=== PATIENT | male | born 1935 | race Caucasian/White ===

== ENCOUNTER 2018-03-01 14:20 | Day surgery (SDC) | payer MEDICARE, OTHER ==
[~2018-03-01 14:20] MED LIST: Lactated Ringers 1,000 ML IV SCH; Sodium Chloride 0.9% 10 ML Syringe FLUSH PRN
[2018-03-01] MEDS ORDERED: Propofol 200 MG/20 ML SDV ONE ×3 (14:22→14:59)
--- NOTE | 2018-03-01 14:58 | PCM.PN ---
- General Info Date of Service: 03/01/18 - Review of Systems Systems Review Comment:: 82-year-old male referred by Sophia Moses for EGD and colonoscopy. He notes dark stools recently and also was noted to have a decreasing hemoglobin. The patient does take Elaquis. His last dose was 2 days ago. I have discussed the proposed colonoscopy with the patient. Risks such as but not limited to bleeding and GI injury reviewed. He appears to understand and agrees to proceed. His recent history and physical is reviewed and there is no significant changes noted. - Patient Data Weight - Most Recent: 93.894 kg Med Orders - Current: Current Medications Lactated Ringer's (Ringers, Lactated) 1,000 mls @ 125 mls/hr IV ASDIRECTED MARIO Last Admin: 03/01/18 14:55 Dose: 125 mls/hr Sodium Chloride (Saline Flush) 10 ml FLUSH ASDIRECTED PRN PRN Reason: Keep Vein Open Discontinued Medications Propofol (Diprivan 20 Ml) Confirm Administered Dose 400 mg .ROUTE .STK-MED ONE Stop: 03/01/18 14:23 - Problem List Review Problem List Initiated/Reviewed/Updated: Yes - My Orders Last 24 Hours: My Active Orders 03/01/18 13:15 Patient Status [ADT] Routine Peripheral IV Care [RC] . DIRECTED Verify Patient Consent Obtain [RC] ASDIRECTED Lactated Ringers [Ringers, Lactated] 1,000 ml IV ASDIRECTED Sodium Chloride 0.9% [Saline Flush] 10 ml FLUSH ASDIRECTED PRN Peripheral IV Insertion Adult [OM.PC] Routine - Assessment Assessment:: Anemia with GI bleed - Plan Plan:: EGD and colonoscopy
--- NOTE | 2018-03-01 15:41 | PCM.OPNOTE ---
- General Post-Op/Procedure Note Date of Surgery/Procedure: 03/01/18 Operative Procedure(s): EGD with Biopsy. Colonoscopy with Polypectomy Findings: Large Gastric Mass (suspicious for malignancy) Extensive Left Colon Diverticulosis Transverse Colon Polyp Pre Op Diagnosis: Anemia with Dark Stools Post-Op Diagnosis: Gastric Mass. Left colon Diverticulosis. Colon Polyp Anesthesia Technique: MAC Primary Surgeon: Raudel Stephenson Pathology: Biopsy of Gastric Mass Transverse Colon Polyp Output, Urine Amount: 0 EBL in mLs: 5 Complications: None Condition: Good Free Text/Narrative:: Intake & Output 03/01/18 03/01/18 03/01/18 06:59 14:59 22:59 Intake Total 900 Balance 900
--- NOTE | 2018-03-02 08:40 | OR ---
Date of Procedure: 03/01/2018 PREOPERATIVE DIAGNOSES: Anemia and gastrointestinal bleeding. POSTOPERATIVE DIAGNOSES: Gastric mass, left colon diverticulosis, transverse colon polyp. OPERATION PERFORMED: Esophagogastroduodenoscopy with biopsy and colonoscopy with polypectomy. INDICATIONS FOR SURGERY: This 82-year-old male has been noted to have anemia and also has been having some dark stools. He is referred for upper and lower endoscopy. FINDINGS: In the midportion of the patient's stomach along the lesser curvature posteriorly, the patient has a large polypoid mass, estimated at approximately 5 to 7 cm. It is irregular in shape and grossly worrisome for a gastric malignancy. It has a relatively thick stalk attachment to the gastric wall. The remainder of the gastric wall appeared normal as does the esophagus and duodenum. In the patient's colon, he has extensive left colon diverticulosis, but does not appear to be acutely inflamed. He had a single polyp noted in the distal transverse colon. This was 7 mm in size and sessile in configuration. DESCRIPTION OF PROCEDURE: The patient was taken to the operating room. He was given intravenous sedation, and with him in the left lateral decubitus position, the esophagus was intubated with the Olympus gastroscope. This was carefully advanced down through the esophagus and into the stomach with the above gastric mass as noted. The scope was further advanced down into the duodenum, where examination to the 3rd portion was performed. After carefully examining the duodenum, the scope was withdrawn back into the stomach where full examination including retroflexed examination of the fundus was performed. The gastric mass was identified, multiple bites of the mass were taken in an effort to establish diagnosis. Without visible evidence of excessive bleeding, the scope was then further withdrawn. The GE junction and esophagus were re-examined as the scope was removed. Attention was turned to colonoscopy. Digital rectal exam showed no rectal masses. The Olympus colonoscope was inserted into the rectum. Retroflexed examination of the rectal canal was performed. The scope was then carefully advanced up through the left side of the colon, and in the distal transverse colon, the above-described polyp was identified. It was removed with a cautery snare and retrieved into a polyp trap. The scope was then carefully advanced through the entire length of the colon until the cecum was reached. Cecal acquisition was confirmed by noting the normal internal cecal anatomy including the appendiceal orifice and ileocecal valve and the light was also noted to transilluminate the abdominal wall in the right lower quadrant. After examining the cecum, the scope was slowly withdrawn sequentially re-examining the colonic segments until the entire colon and rectum had been fully examined. The scope was removed and the patient was taken from the operating room in satisfactory condition. ESTIMATED BLOOD LOSS: 5 mL. COMPLICATIONS: None. PROGNOSIS: Good. AMRITA Stephenson MD /[id number]
== END 2018-03-01 16:39 | disposition home or self-care (01) ==
LOC: LL.SDS 14:20
PROVIDERS: ATTEND Surgery
DX: C16.5 Malignant neoplasm of lesser curvature of stomach, unspecified (principal); D12.3 Benign neoplasm of transverse colon; K57.30 Diverticulosis of large intestine without perforation or abscess without bleeding; I12.9 Hypertensive chronic kidney disease with stage 1 through stage 4 chronic kidney disease, or unspecified chronic kidney disease; N18.3 Chronic kidney disease, stage 3 (moderate); G47.33 Obstructive sleep apnea (adult) (pediatric); E66.9 Obesity, unspecified; Z68.29 Body mass index [BMI] 29.0-29.9, adult; E78.2 Mixed hyperlipidemia; Z99.89 Dependence on other enabling machines and devices; D64.9 Anemia, unspecified; Z79.82 Long term (current) use of aspirin; Z79.899 Other long term (current) drug therapy; Z88.8 Allergy status to other drugs, medicaments and biological substances; H90.3 Sensorineural hearing loss, bilateral; I48.91 Unspecified atrial fibrillation; Z79.01 Long term (current) use of anticoagulants
CPT/HCPCS: 00813; J2704; J7120

== ENCOUNTER 2024-08-06 10:29 | Inpatient (IN) | payer MEDICARE, OTHER ==
[2024-08-06 11:59] LABS: BASOPHILS ABSOLUTE AUTO 0.01 K/uL (0.00-0.20); BASOPHILS PERCENT AUTO 0.1 % (0.0-2.0); EOSINOPHILS ABSOLUTE AUTO 0.01 K/uL (0.00-0.50); EOSINOPHILS PERCENT AUTO 0.1 % (0.0-5.0); HEMATOCRIT 39.1 % (39.0-49.0); HEMOGLOBIN 12.7 g/dL (13.1-16.8); LYMPHOCYTES ABSOLUTE AUTO 0.59 K/uL (0.50-3.50); LYMPHOCYTES PERCENT AUTO 6.7 % (10.0-50.0); MEAN CORPUSCULAR HEMOGLOBIN 34.4 pg (28.2-33.3); MEAN CORPUSCULAR HGB CONC 32.5 g/dL (31.7-36.0); MONOCYTES ABSOLUTE AUTO 0.88 K/uL (0.00-1.00); MONOCYTES PERCENT AUTO 10.1 % (2.0-14.0); NEUTROPHILS ABSOLUTE AUTO 7.26 K/uL (1.40-7.00); PLATELET COUNT,PLT 179 K/uL (150-350); RED BLOOD CELL COUNT 3.69 M/uL (4.33-5.41); RED CELL DISTRIBUTION WIDTH 13.8 % (11.2-14.1); WHITE BLOOD CELL COUNT,WBC 8.8 K/uL (4.0-10.2)
[2024-08-06] MEDS ORDERED: Sodium Chloride 0.9% 10 ML Syringe FLUSH PRN (12:13)
[2024-08-06 12:19] LABS: INR 1.4 (0.9-1.1); PROTHROMBIN TIME 14.2 SEC (9.0-11.1)
[2024-08-06 12:32] LABS: ALANINE AMINOTRANSFERASE,ALT 28 U/L (12-78); ALBUMIN 3.4 g/dL (3.4-5.0); ALKALINE PHOSPHATASE 74 IU/L (46-116); ANION GAP 12.9 meq/L (7-15); ASPARTATE AMNIOTRANSFERASE,AST 33 U/L (15-37); BILIRUBIN TOTAL 1.4 mg/dL (0.2-1.0); BLOOD UREA NITROGEN,BUN 47 mg/dL (7-18); CALCIUM 10.5 mg/dL (8.5-10.1); CARBON DIOXIDE,CO2 27.4 mmol/L (21.0-32.0); CHLORIDE,CL 101 mmol/L (98-107); CREATININE 2.87 mg/dL (0.51-1.17); ESTIMATED GFR 20 mL/min (>=60); GLUCOSE RANDOM 126 mg/dL (70-99); POTASSIUM,K 5.3 mmol/L (3.5-5.1); PRO B-TYPE NATRIUR PEPT,BNPPRO 2165 pg/mL (0-125); PROTEIN TOTAL,TP 7.3 g/dL (6.4-8.2); SODIUM,NA 136 mmol/L (136-145)
[2024-08-06] MEDS: Furosemide 20 MG Tab PO ONE (12:38)
[2024-08-06] MEDS: Metoprolol Succinate 25 MG Tab.ER PO ONE (12:39)
[2024-08-06] MEDS ORDERED: Naloxone 0.4 MG/ML SDV IVPUSH PRN (12:47)
[2024-08-06] MEDS: fentaNYL 50 MCG/ML SDV IVPUSH ONE (12:56)
[2024-08-06] MEDS: Sodium Chloride 0.9% 10 ML Syringe FLUSH PRN (13:08)
[2024-08-06] MEDS ORDERED: Ondansetron 4 MG Tab.DIS PO PRN (19:42)
[2024-08-06] MEDS ORDERED: LORazepam 2 MG/ML SDV IV PRN (19:42)
[2024-08-06] MEDS: Acetaminophen 325 MG Tab PO PRN (21:13)
[2024-08-06] MEDS: Melatonin 3 MG Tab PO PRN (21:13)
[2024-08-06] MEDS: Warfarin 5 MG Tab PO SCH (21:37)
[2024-08-06] MEDS: Warfarin 5 MG Tab ONE (22:27)
[2024-08-07] MEDS: Morphine 2 MG/ML SYRINGE IVPUSH PRN (04:04)
[2024-08-07 07:33] LABS: BASOPHILS ABSOLUTE AUTO 0.02 K/uL (0.00-0.20); BASOPHILS PERCENT AUTO 0.2 % (0.0-2.0); EOSINOPHILS ABSOLUTE AUTO 0.01 K/uL (0.00-0.50); EOSINOPHILS PERCENT AUTO 0.1 % (0.0-5.0); HEMATOCRIT 36.6 % (39.0-49.0); HEMOGLOBIN 11.8 g/dL (13.1-16.8); LYMPHOCYTES ABSOLUTE AUTO 0.65 K/uL (0.50-3.50); LYMPHOCYTES PERCENT AUTO 7.4 % (10.0-50.0); MEAN CORPUSCULAR HEMOGLOBIN 34.1 pg (28.2-33.3); MEAN CORPUSCULAR HGB CONC 32.2 g/dL (31.7-36.0); MEAN CORPUSCULAR VOLUME 105.8 fL (84.0-98.0); MONOCYTES ABSOLUTE AUTO 0.94 K/uL (0.00-1.00); MONOCYTES PERCENT AUTO 10.7 % (2.0-14.0); NEUTROPHILS PERCENT AUTO 81.6 % (45.0-80.0); PLATELET COUNT,PLT 171 K/uL (150-350); RED BLOOD CELL COUNT 3.46 M/uL (4.33-5.41); RED CELL DISTRIBUTION WIDTH 13.8 % (11.2-14.1); WHITE BLOOD CELL COUNT,WBC 8.8 K/uL (4.0-10.2)
[2024-08-07 07:50] LABS: ALBUMIN 3.1 g/dL (3.4-5.0); BILIRUBIN TOTAL 1.4 mg/dL (0.2-1.0); CALCIUM 10.3 mg/dL (8.5-10.1); CARBON DIOXIDE,CO2 23.9 mmol/L (21.0-32.0); CREATININE 2.97 mg/dL (0.51-1.17); EST CRCL DRUG DOSING (CG) 17.75 mL/min; POTASSIUM,K 4.6 mmol/L (3.5-5.1); PROTEIN TOTAL,TP 6.9 g/dL (6.4-8.2)
[2024-08-07 07:52] LABS: ANION GAP 13.7 meq/L (7-15)
[2024-08-07] MEDS: Ferrous Sulfate 325 MG Tab PO SCH (07:57)
[2024-08-07] MEDS: Lutein/Minerals/Vitamin C/Vitamin E Acetate Cap PO SCH (07:57)
[2024-08-07] MEDS: Furosemide 20 MG Tab PO SCH (07:57)
[2024-08-07] MEDS: Metoprolol Succinate 25 MG Tab.ER PO SCH (07:57)
[2024-08-07] MEDS: atorvaSTATin 10 MG Tab PO SCH (07:58)
[2024-08-07] MEDS: Vitamin E (dl-alpha-tocopherol acetate) 400 Unit Cap PO SCH (07:58)
[2024-08-07] MEDS: Venlafaxine 75 MG Cap.ER PO SCH (07:58)
[2024-08-07] MEDS: Cyanocobalamin (Vitamin B12) 1,000 MCG Tab PO SCH (07:58)
[2024-08-07 08:03] LABS: INR 1.3 (0.9-1.1); PROTHROMBIN TIME 13.2 SEC (9.0-11.1)
[2024-08-07] MEDS: Enoxaparin 30 MG/0.3 ML Syringe SUBCUT SCH (13:06)
[2024-08-07] MEDS: Sennosides/Docusate Sodium 50-8.6 MG Tab PO PRN (14:29)
[2024-08-07] MEDS: Polyethylene Glycol 3350 Powder 17 GM Packet PO SCH (16:17)
[2024-08-07] MEDS: Ondansetron 4 MG/2 ML SDV IVPUSH PRN (18:10)
[2024-08-07] MEDS: HYDROmorphone 0.5 MG/0.5 ML Syringe IVPUSH ONE (19:08)
[2024-08-09] MEDS ORDERED: Warfarin 5 MG Tab PO SCH (18:00)
== END 2024-08-07 19:37 | DRG 536 ==
LOC: LL.ED 10:29 → LL.MS 17:17
PROVIDERS: ADMIT Physician Assistant; ATTEND Physician Assistant
DX: S32.442A Displaced fracture of posterior column [ilioischial] of left acetabulum, initial encounter for closed fracture (principal); I10 Essential (primary) hypertension; D50.9 Iron deficiency anemia, unspecified; I12.9 Hypertensive chronic kidney disease with stage 1 through stage 4 chronic kidney disease, or unspecified chronic kidney disease; N18.30 Chronic kidney disease, stage 3 unspecified; M10.9 Gout, unspecified; G47.30 Sleep apnea, unspecified; E78.00 Pure hypercholesterolemia, unspecified; W01.0XXA Fall on same level from slipping, tripping and stumbling without subsequent striking against object, initial encounter; I48.91 Unspecified atrial fibrillation; F41.9 Anxiety disorder, unspecified; F32.A Depression, unspecified; Z88.8 Allergy status to other drugs, medicaments and biological substances; Z79.01 Long term (current) use of anticoagulants; Z79.899 Other long term (current) drug therapy; W01.10XA Fall on same level from slipping, tripping and stumbling with subsequent striking against unspecified object, initial encounter
CPT/HCPCS: 36415; 73502 ×2; 73700; 80053; 83880; 85025; 85610; 96374; 99285; A9270 ×2; J3010; J1171; J1650; J2270; J2405; J3490